=== PATIENT | female | born 1970 | race Caucasian/White ===

== ENCOUNTER 2021-09-05 08:30 | Outpatient (CLI) | payer BC, SELFPAY ==
--- NOTE | 2021-09-05 11:00 | NEURO_ITS ---
Impression: # Complains of pain in upper thigh bilaterally. # Normal motor and sensory nerve conduction study including F-waves. # Needle/EMG exam not requested. # Clinical correlation recommended; Possibility of myopathy cannot be ruled out. Nerve Conduction Studies Anti Sensory Summary Table Stim Site NR Peak (ms) P-T Amp (?V) Site1 Site2 Delta-P (ms) Dist (cm) Arnie (m/s) Left Sup Fibular Anti Sensory (Ant Lat Mall) 14 cm 3.6 6.5 14 cm Ant Lat Mall 3.6 16.0 44 Right Sup Fibular Anti Sensory (Ant Lat Mall) 14 cm 3.4 10.7 14 cm Ant Lat Mall 3.4 16.0 47 Left Sural Anti Sensory Run #2 (Lat Mall) Calf 3.6 12.6 Calf Lat Mall 3.6 16.0 44 Right Sural Anti Sensory (Lat Mall) Calf 3.8 7.0 Calf Lat Mall 3.8 16.0 42 Motor Summary Table Stim Site NR Onset (ms) O-P Amp (mV) Site1 Site2 Delta-0 (ms) Dist (cm) Arnie (m/s) Left Peroneal Motor (Vastus Med) Ankle 4.4 1.1 Popit Ankle 8.1 39.0 48 Popit 12.5 0.9 Right Peroneal Motor (Vastus Med) Ankle 4.5 3.1 Popit Ankle 7.6 38.0 50 Popit 12.1 3.0 Left Tibial Motor (Abd Orta Brev) Ankle 4.6 3.1 Knee Ankle 8.4 42.0 50 Knee 13.0 2.3 Right Tibial Motor (Abd Orta Brev) Ankle 4.5 5.4 Knee Ankle 8.7 41.0 47 Knee 13.2 3.1 F Wave Studies NR F-Lat (ms) L-R F-Lat (ms) Left Peroneal (Mrkrs) (EDB) 53.62 0.52 Right Peroneal (Mrkrs) (EDB) 53.10 0.52 Left Tibial (Mrkrs) (Abd Hallucis) 53.24 1.44 Right Tibial (Mrkrs) (Abd Hallucis) 54.69 1.44 MTDD
== END 2021-09-05 08:31 | disposition home or self-care (01) ==
LOC: ANHNEURO 08:31
PROVIDERS: PCP Internal Medicine; Visit Provider Physician Assistant Medical
DX: M79.2 Neuralgia and neuritis, unspecified (principal)
CPT/HCPCS: 95910

== ENCOUNTER 2022-08-14 13:42 | Outpatient (CLI) | payer BC, SELFPAY ==
--- NOTE | 2022-08-14 14:45 | ECG_ITS ---
Measurements Intervals [place] Rate: 96 P: 55 CT: 171 QRS: 29 QRSD: 85 T: 45 QT: 315 QTc: 398 Interpretive Statements SINUS RHYTHM POSSIBLE LEFT ATRIAL ENLARGEMENT INCOMPLETE RIGHT BUNDLE BRANCH BLOCK BASELINE ARTIFACT- I, II, III, AVR, AVL, AVF BORDERLINE ECG NO PREVIOUS ECG AVAILABLE FOR COMPARISON Electronically Signed On 08-14-2022 15:32:44 RANCH HAND SUPERVISOR by Mathew Ruelas D.O.
[2022-08-14 15:25] LABS: Basophils Absolute Auto 0.1 K/mm3 (0.0-0.1); Basophils Percent Auto 1.7 % (0.2-1.2); Eosinophils Absolute Auto 0.1 K/mm3 (0-0.3); Eosinophils Percent Auto 1.3 % (0-4.4); Hematocrit 42.2 % (37.0-47.0); Hemoglobin 13.8 g/dL (12.0-15.0); Immature Granulocyte Absolute 0.03 K/mm3 (0.00-0.031); Immature Granulocyte Percent A 0.6 % (0-0.5); Lymphocytes Absolute Auto 1.25 K/mm3 (0.9-3.2); Lymphocytes Percent Auto 23.1 % (18.3-44.2); Mean Corpuscular HGB Conc 32.7 g/dl (32-36); Mean Corpuscular Hemoglobin 32.1 pg (26-34); Mean Corpuscular Volume 98.1 fl (80-100); Mean Platelet Volume 10.2 fl (7.4-10.4); Monocytes Absolute Auto 0.8 K/mm3 (0.1-0.6); Monocytes Percent Auto 15.4 % (2.6-8.5); Neutrophils Absolute Auto 3.1 K/mm3 (1.3-6.7); Neutrophils Percent Auto 57.9 % (45.5-73.1); Platelet Count Result 227 k/mm3 (150-375); Red Cell Distribution Width 14.5 % (11.5-14.5); White Blood Count 5.4 K/mm3 (4.5-10.0)
[2022-08-14 15:30] LABS: Urine Cotinine NEGATIVE
[2022-08-14 15:33] LABS: Albumin Level 4.6 g/dL (3.5-5.1); Anion Gap 10 mmol/L (8-16); Blood Urea Nitrogen 19 mg/dL (7-17); Calcium 9.2 mg/dL (8.4-10.2); Carbon Dioxide 32 mmol/L (22-30); Chloride 98 mmol/L (98-107); Estimated Glomerular Filt Rate > 60; Glucose 90 mg/dL (65-110); Sodium 140 mmol/L (137-145)
[2022-08-14 15:41] LABS: Hemoglobin A1C 5.6 % (<5.7)
== END 2022-08-14 13:43 | disposition home or self-care (01) ==
PROVIDERS: PCP Physician Assistant Medical; Visit Provider Orthopaedic Surgery
DX: M16.11 Unilateral primary osteoarthritis, right hip (principal); Z01.818 Encounter for other preprocedural examination; I45.10 Unspecified right bundle-branch block
CPT/HCPCS: 80048; 80307; 82040; 83036; 85025; 87081; 93005

== ENCOUNTER 2022-08-28 01:01 | Day surgery (SDC) | payer BC, SELFPAY ==
[2022-08-14 13:53] VITALS: BMI 26.6
--- NOTE | 2022-08-14 14:15 | PC.NURSE ---
Report to the Outpatient Waiting Room, entrance under the green pavilion located off [facility], at time ___0600____ on date _08/28/22 . Planned Procedure Time: __729 . Time changes happen often and if your time is changed the preop area will call you the afternoon before. - You and your visitor will be asked to self-screen and do not enter if you have any COVID symptoms. - We encourage only one visitor and NO visitors under age 16 are allowed at this time. Your visitor will receive communication by the phone number that is given day of service. - The patient visitor is requested to social distance or may leave the building when not with patient due to restrictions. - A mask is required within the hospital. Patients may have clear liquids (water, carbonated beverages, clear teas, apple juice) until 3 hours prior to surgery with a maximum of 20 ounces. - No food from midnight until time of surgery - Infants may have breast milk until 4 hours before surgery, formula 6 hours prior to surgery. - Children will be allowed to drink immediately following surgery. If applicable, please bring a bottle or sippy cup to assist with drinking. Juice, water, soda, and popsicles are readily available. For infants on formula, please bring formula the day of surgery. Pacifiers are allowed. Take the following medications with a SIP of water the morning of surgery: ___NONE Medications to discontinue per physician __DICLOFENAC 7 DAYS PRE OP AND ALL VITAMINS AND SUPPLEMENTS PT STATES 7 DAYS PRE OP PER DR ARMAS Date to take last dose 08/20/22 Please no make-up, nail german, hairspray, perfume, deodorant, or body powder the day of surgery. No jewelry (including any body piercings) or valuables the day of surgery, leave them at home. Please take a shower or bath the night before, or the morning of, surgery with an antibacterial soap. Wear comfortable, loose fitting clothing. Children are encouraged to wear pajamas. - Jewelry must be removed prior to entering the operating room. Rings and piercings that are not removed may be cut off. - The hospital will not accept responsibility for valuables. - Please leave all valuables, including medications, at home the day of surgery. If you are going home after surgery, a licensed street flusher driver must drive you home. - NO public transportation without another adult. - We recommend that an adult stay with you for 24 hours following discharge. - We also recommend that you do not drive, make important decision, drink alcoholic beverages, or take any drugs that were not prescribed by your health care provider for at least 24 hours after your discharge time. For Pediatric surgeries, we recommend two adults accompany the child home. Follow any additional instructions given to you from your surgeon. If you or anyone in your household have experienced Covid symptoms in the past week, please notify your surgeon or the nurse liaison at the phone number below for possible testing. VERBAL AND WRITTEN instructions given to __PATIENT and asked if any additional questions and then verbalized understanding. Patient advised to call surgeon office or pre surgery nurse liaison [phone] if any additional questions.
[2022-08-14 14:33] VITALS: BP 152/84; PULSE 92; RESP 18; TEMP 37.2; O2SAT 96
--- NOTE | 2022-08-25 07:29 | PM.IMHP ---
H&P: HPI History of Present Illness Date/Time: 08/25/22 07:29 Chief Complaint: Right hip DJD Narrative: 52-year-old female who presents today for a right anterior total arthroplasty. She has been having progressively worsening pain in the right hip over the course last year to year and half. She has been on diclofenac 75 mg b.i.d.. Patient states she is having symptoms on a daily basis that are limiting her activities. She had her left hip replaced in 2018 is very happy with her results. She does have moderately severe osteoarthritis of the right hip and feels this point she is ready to proceed with total hip arthroplasty rather continue in a nonsurgical treatment. Review of Systems Review of Systems: All systems reviewed & are unremarkable except as noted in HPI and below PMFSH Past Medical History Medical History Abnormal mammogram Anxiety Bilateral hip pain Body mass index [BMI] 25.0-25.9, adult Body mass index [BMI] 27.0-27.9, adult (07/08/19) Cyst of left ovary Elevated liver function tests Encounter for gynecological examination (general) (routine) without abnormal findings Hx of ovarian cyst Pain in left hip Postmenopausal Primary osteoarthritis of both hips Trochanteric bursitis of both hips Trochanteric bursitis, left hip Urinary tract infection symptoms Surgical History Surgical History H/O hand surgery S/P endometrial ablation S/P hip replacement Family History Family History Father Diabetes mellitus Mother Cerebrovascular accident, Onset Age: 67 Social History Social History Smoking packs per day: 1 Smoking cigarettes per day: 20.0 Years smoked: 13 Smoking pack-years: 13.00 Smoking status: Former smoker Tobacco type: cigarettes Smoking end date: 10/08/98 Additional smoking assessment comments: DENIES ANY FORM OF TOBACCO USE Alcohol intake: current Drinks per week: 10 Substance use: current Substance use type: marijuana Other substance usage details: USES EVERY HS X 2 YEARS Last use: 08/13/22 Living arrangements: with family Gender identity (if verbalized by the patient): Female Sexual Orientation (if Verbalized by the Patient): Straight or Heterosexual Spiritual care concerns: No Meds Home Medications and Allergies Home Medications Medication Instructions Recorded Confirmed Type ferrous sulfate 325 mg (65 mg 325 mg PO DAILY 07/13/20 08/28/22 History iron) tablet (Feosol) doxycycline hyclate 20 mg capsule 20 mg PO Q12H 08/01/22 08/28/22 History calcium carbonate 600 mg-vitamin 1 tablet PO BID 08/14/22 08/28/22 History D3 10 mcg (400 unit) tablet (Calcium 600 + D(3)) diclofenac sodium 75 mg 75 mg PO PRN PRN Pain 08/14/22 08/28/22 History tablet,delayed release misoprostol 200 mcg tablet 200 mcg PO PRN PRN 08/14/22 08/28/22 History Gastrointestinal Spasms Or Cramping multivitamin 1 tablet PO DAILY 08/14/22 08/28/22 History venlafaxine 75 mg capsule,extended 75 mg PO DAILY #90 caps 08/23/22 Rx release 24 hr (Effexor XR) Allergies Allergy/AdvReac Type Severity Reaction Status Date / Time amoxicillin Allergy Unknown Dizziness Verified 08/28/22 06:26 AND HIVES latex Allergy Unknown Unknown Verified 08/28/22 06:26 metronidazole Allergy Unknown Hives Verified 08/28/22 06:26 Exam Narrative: 52-year-old female she is 5 ft 4 161 lb. Right hip flexes to 90? which caused her lateral hip pain, internal rotation only to 0 which also causes her anterior lateral hip pain. External rotation to 30. Stinchfield maneuver causes her anterior lateral hip pain. She has normal abduction strength no tenderness over the greater trochanter. 2+ dorsalis pedis and posterior artery pulse. Normal sensation right lower
[2022-08-28] VITALS (18 sets, daily range): BP systolic 104–160; BP diastolic 53–99; PULSE 89–108; RESP 10–20; TEMP 34.9–37.1; O2SAT 91–100; BMI 29.0
--- NOTE | ~2022-08-28 | XR_ITS ---
EXAMINATION: XR hip RT 1V w AP pelvis DATE: 08/28/2022 11:15 INDICATION: Right total hip arthroplasty TECHNIQUE: 2 views right hip FINDINGS: There is a right total hip arthroplasty in expected position. Subcutaneous gas with soft t issue swelling are consistent with recent surgery. Left hip arthroplasty also noted. IMPRESSION: 1. Recent right total hip arthroplasty. Reviewed, dictated and finalized at location B. NDMAN/LINEMAN
--- NOTE | ~2022-08-28 | XR_ITS ---
EXAMINATION: XR surgery orthopedic DATE: 08/28/2022 10:51 INDICATION: Anterior approach right total hip arthroplasty TECHNIQUE: Single fluoroscopic AP view of the right hip was obtained. Radiologist was not present for the procedure or imaging. The amount of fluoroscopy time used during this procedure was 0.9 minutes. COMPARISON: 02/06/2018 FINDINGS: Interval placement of a right total hip arthroplasty which appears well seated in near anatomic align ment on the single provided frontal projection. The acetabular component is affixed with at least a s frantz screw. No fractures identified. Expected lucent gas at the operative bed. IMPRESSION: 1. Expected appearance during right total hip arthroplasty. Reviewed, dictated and finalized at location A. OGRAPHER'S ASSISTANT
[2022-08-28] MEDS: LACTATED RINGERS 1,000 ML 30 ML IV CONT ×2 (06:40→11:13)
[2022-08-28] MEDS: TRANEXAMIC ACID 1,000MG/ISO100 1,000 MG/100 ML BAG 200 MG IVPB (06:40)
[2022-08-28] MEDS: ACETAMINOPHEN 500 MG TABLET 1000 MG PO ×3 (06:46→20:40)
--- NOTE | 2022-08-28 07:08 | WPDANESEPPF ---
Anes - Initial Pre Proc Eval Procedure: Operation Date: 08/28/22 07:30 Proposed Procedures p Right Total Hip Anterior Approach - Jeffrey Diaz MD Date/Time: 08/28/22 07:08 Surgeon: Jeffrey Diaz MD Pre Op Diagnosis: O A Rt Hip Patient Data Age: 52 Gender: F Height: 1.65 m Weight: 71.2 kg Last Vital Signs Temp 97.4 F L 08/28/22 06:20 Pulse 95 08/28/22 06:20 Resp 16 08/28/22 06:20 BP 150/90 H 08/28/22 06:20 Pulse Ox 97 08/28/22 06:20 O2 Del Method Room Air 08/28/22 06:20 Allergies Allergy/AdvReac Type Severity Reaction Status Date / Time amoxicillin Allergy Unknown Dizziness Verified 08/28/22 06:26 AND HIVES latex Allergy Unknown Unknown Verified 08/28/22 06:26 metronidazole Allergy Unknown Hives Verified 08/28/22 06:26 Home Medications Medication Instructions Recorded Confirmed Type ferrous sulfate 325 mg (65 mg 325 mg PO DAILY 07/13/20 08/28/22 History iron) tablet (Feosol) doxycycline hyclate 20 mg capsule 20 mg PO Q12H 08/01/22 08/28/22 History calcium carbonate 600 mg-vitamin 1 tablet PO BID 08/14/22 08/28/22 History D3 10 mcg (400 unit) tablet (Calcium 600 + D(3)) diclofenac sodium 75 mg 75 mg PO PRN PRN Pain 08/14/22 08/28/22 History tablet,delayed release misoprostol 200 mcg tablet 200 mcg PO PRN PRN 08/14/22 08/28/22 History Gastrointestinal Spasms Or Cramping multivitamin 1 tablet PO DAILY 08/14/22 08/28/22 History venlafaxine 75 mg capsule,extended 75 mg PO DAILY #90 caps 08/23/22 Rx release 24 hr (Effexor XR) Laboratory Tests 08/28/22 06:34 Beta HCG, Quant Pending Patient hx anesthesia problems: none Family hx anesthesia problems: none Results Review: All pre-operative results and documents have been reviewed as part of the pre-operative evaluation. FOR[facility]LY [facility] Past Medical History Medical History Abnormal mammogram Anxiety Bilateral hip pain Body mass index [BMI] 25.0-25.9, adult Body mass index [BMI] 27.0-27.9, adult (07/08/19) Cyst of left ovary Elevated liver function tests Encounter for gynecological examination (general) (routine) without abnormal findings Hx of ovarian cyst Pain in left hip Postmenopausal Primary osteoarthritis of both hips Trochanteric bursitis of both hips Trochanteric bursitis, left hip Urinary tract infection symptoms Surgical History Surgical History H/O hand surgery S/P endometrial ablation S/P hip replacement Family History Family History Father Diabetes mellitus Mother Cerebrovascular accident, Onset Age: 67 Social History Social History Smoking packs per day: 1 Smoking cigarettes per day: 20.0 Years smoked: 13 Smoking pack-years: 13.00 Smoking status: Former smoker Tobacco type: cigarettes Smoking end date: 10/08/98 Additional smoking assessment comments: DENIES ANY FORM OF TOBACCO USE Alcohol intake: current Drinks per week: 10 Substance use: current Substance use type: marijuana Other substance usage details: USES EVERY HS X 2 YEARS Last use: 08/13/22 Living arrangements: with family Gender identity (if verbalized by the patient): Female Sexual Orientation (if Verbalized by the Patient): Straight or Heterosexual Spiritual care concerns: No Anes - Eval Final PreProcedure Day of Procedure 08/28/22 07:08 Patient weight: normal Heart: regular rate and rhythm Lungs: clear to auscultation Airway: Mallampati scale class III (may need glidescope) Neurological: alert and oriented Last oral intake: >/= 8 hours ASA classification: II Emergent: no Anesthetic plan: proceed Anesthesia type and monitoring: general ETT and standard monitoring Results Review: All pre-operative results and documents have been r
--- NOTE | 2022-08-28 07:15 | WPDHPUPDATE1 ---
History and Physical Update Update Date/Time: 08/28/22 07:15 History and Physical has been reviewed, including an updated exam of the patient. There are NO changes in the patient's condition. Risks, benefits, and alternatives have been discussed and questions answered. Patient agrees to proceed with procedure.
[2022-08-28] MEDS: ceFAZolin 2 GM/D5W 50 ML 2 GM/50 ML BAG IVPB (07:32)
[2022-08-28] MEDS: ceFAZolin SODIUM 1 GM VIAL 3 GM (08:14)
[2022-08-28 08:49] LABS: Beta HCG Quantitative < 2.39 mIU/ML
[2022-08-28] MEDS: TRANEXAMIC ACID 1,000 MG/10 ML AMPUL 1000 MG IV PUSH (10:37)
[2022-08-28] MEDS: KETOROLAC 15 MG/ML VIAL (*BKC) IV PUSH ×3 (10:40→23:16)
[2022-08-28] MEDS: ceFAZolin SODIUM 1 GM VIAL 2 GM IV PUSH (10:41)
--- NOTE | 2022-08-28 11:21 | PM.OP ---
Procedure Note - Brief Procedure Note - Brief Date of procedure: 08/28/22 <GHAZAL Rolle - Last Filed: 08/28/22 11:22> 08/28/22 <Jeffrey Diaz MD - Last Filed: 08/28/22 11:32> Pre-op diagnosis: O A Rt Hip <GHAZAL Rolle - Last Filed: 08/28/22 11:22> Right hip DJD <GHAZAL Rolle - Last Filed: 08/28/22 11:22> Procedure performed: Right anterior total hip arthroplasty <GHAZAL Rolle - Last Filed: 08/28/22 11:22> Description of procedure: 52-year-old female who underwent right anterior total hip arthroplasty 08/28. I was involved in the procedure including positioning the patient on the OR table, 1st assisting to time surgery as well as closure. I was also involved in getting patient to recovery room. Total time spent was 4 hours <GHAZAL Rolle - Last Filed: 08/28/22 11:22> Surgeon: GHAZAL Rolle <GHAZAL Rolle - Last Filed: 08/28/22 11:22>
--- NOTE | 2022-08-28 11:22 | W.PM.PROC2 ---
Procedure Note - Detailed Date of Procedure 08/28/22 Pre-op Diagnosis O A Rt Hip Post-op Diagnosis Same Procedure Performed Direct anterior approach right total hip arthroplasty Surgeon Jeffrey Diaz MD Supervisory Geographer Rex DARLING Anesthesia General Description of Procedure Patient was brought to the operating room and general anesthesia was administered. She was placed in the [facility] [place] table right hip prepped and draped in usual fashion. The were padded placed in the boots. SCDs were applied the legs in running during the procedures. She received 2 g of Ancef weight based vancomycin 1 g of tranexamic acid preoperatively. A 10 cm longitudinal incision was made starting 3 cm lateral to the ASIS. Dissection was carried down to the fascia over the tensor fascia jada which was longitudinally incised and elevated off the anterior 50% of the TFL muscle. Interval between TFL and rectus femoris was developed and crossing vessels of ascending lateral femoral circumflex vessels were ligated with suture and divided. Retractor was placed anterior to the capsule the hip abducted and internally rotated and the gluteus minimus elevated off the lateral capsule. There was a ganglion cyst within the lateral capsular tissue in continuity with the joint space. Inverted T capsulotomy was performed. Femoral neck osteotomy made according to preoperative templating and the femoral head was removed and measured 46.5 mm in diameter. Acetabulum was exposed and labrum excised. Remaining articular cartilage was curetted from the acetabulum. The leg was X externally rotated and extended and the interval between conjoined tendon and piriformis tendon identified and incised allowing the piriformis to flipped posteriorly which gave adequate mobilization. With the leg back horizontal external rotation and traction the acetabulum was exposed and prepared. The 49 Reamer almost reamed to the periphery of the acetabulum and with an excellent Press-Fit of the trial. We lightly reamed with the 50 and tried to see the 50 pinnacle shell but could not as her bone density was quite good. We fully seated the 50 Reamer and with this done the 50 shell was able to be impacted fully with excellent press fit in the single screw placed in the ilium. This was placed at 40? of abduction and version such that the anterior rim the shell was just under the anterior rim of the acetabulum. I should also mention that during initial exposure of the acetabulum we encountered a 2 cm long anterior superior acetabular fractured osteophyte attached by fibro cartilaginous tissue and this was removed. Thirty-two inner diameter liner was placed without difficulty. The leg was externally rotated extended with the table hook exposing the femur and we broached up to a size 5 which still had torsional plate the size 6 gave torsional stability. We impacted this to just above our preoperative plan and trialed with the 1 mm head. This gave acceptable stability and we could see on the x-ray that we were flush with the saddle superiorly. I countersunk additional 3 mm trialed with the +5 head this gave appropriate soft tissue stability and x-ray showed this matched our preoperative plan exactly a goal of lengthening her between 3 and 4 mm from her preoperative state. We calcar planed and the wound was again irrigated with antibiotic solution and the size 6 standard offset Actis stem was impacted and fully seated. Excellent Press-Fit was achieved. The 32 mm +5 ceramic head was impacted on the clean and dried trunnion and the hip reduced and stability reconfirmed. Fluoroscopic x-ray documented the implant position. Capsule was reapproximated with 2. Vicryl fascia closed with running 1. Vicryl 2-0 subcutaneous in the skin and glue. Drain was placed deep in the subcu. EBL was 250 cc and she received 125 back as Cell Saver. She received additional 2 g of Ancef and 1 g of tranexamic acid time wound closure. Local anesthetic cock
[2022-08-28] MEDS: fentaNYL CITRATE INJ (*CRX) 100 MCG/2 ML VIAL 25 MCG IV PUSH ×8 (11:26→11:55)
[2022-08-28] MEDS: HYDROmorphone HCL INJ (*CRX) 1 MG/ML SYR 0.5 MG IV PUSH ×5 (12:07→13:20)
--- NOTE | 2022-08-28 14:05 | PC.NURSE ---
This patient, Jacklyn Urrutia, was admitted to 2 Medical Room 240-01. Patient/family oriented to hospital policies and general routines including ID bracelet, bed and alarms, visiting hours, pain management, procedures, bathroom and other care routines, personal items, smoking policy, room service/diet, and visiting hours. Information on how to activate the Rapid Response Team has been discussed. Patient/Family are encouraged to report perceived risks to care and to ask questions if they do not understand what they are told or what they should do.
[2022-08-28] MEDS: SODIUM CHLORIDE 0.9% IV 1,000 ML 125 ML IV CONT (14:55)
[2022-08-28] MEDS: oxyCODONE HCL (*CRX) 5 MG TAB IR 10 MG PO ×3 (14:58→23:16)
[2022-08-28] MEDS: ONDANSETRON INJ 4 MG/2 ML VIAL IV PUSH (15:36)
[2022-08-28] MEDS: SENNA/DOCUSATE SODIUM TABLET 2 TAB PO (16:37)
[2022-08-28] MEDS: FAMOTIDINE 20 MG TABLET PO (20:40)
[2022-08-29] MEDS: oxyCODONE HCL (*CRX) 5 MG TAB IR 10 MG PO ×3 (02:57→10:55)
[2022-08-29] MEDS: ACETAMINOPHEN 500 MG TABLET 1000 MG PO ×2 (02:57→08:06)
[2022-08-29 03:39] VITALS: BP 119/73; PULSE 90; RESP 16; TEMP 36.6; O2SAT 98
[2022-08-29 05:41] LABS: Anion Gap 10 mmol/L (8-16); Blood Urea Nitrogen 8 mg/dL (7-17); Calcium 8.4 mg/dL (8.4-10.2); Carbon Dioxide 29 mmol/L (22-30); Chloride 97 mmol/L (98-107); Estimated CRCL calculation 96 ml/min; Estimated Glomerular Filt Rate > 60; Glucose 97 mg/dL (65-110); Potassium 3.5 mmol/L (3.4-5.0); Sodium 136 mmol/L (137-145)
[2022-08-29 06:05] LABS: Basophils Absolute Auto 0.1 K/mm3 (0.0-0.1); Basophils Percent Auto 0.6 % (0.2-1.2); Eosinophils Percent Auto 0.3 % (0-4.4); Hematocrit 34.4 % (37.0-47.0); Hemoglobin 11.6 g/dL (12.0-15.0); Immature Granulocyte Absolute 0.02 K/mm3 (0.00-0.031); Immature Granulocyte Percent A 0.3 % (0-0.5); Lymphocytes Absolute Auto 1.12 K/mm3 (0.9-3.2); Lymphocytes Percent Auto 14.3 % (18.3-44.2); Mean Corpuscular HGB Conc 33.7 g/dl (32-36); Mean Corpuscular Hemoglobin 31.8 pg (26-34); Mean Corpuscular Volume 94.2 fl (80-100); Mean Platelet Volume 10.5 fl (7.4-10.4); Monocytes Absolute Auto 1.3 K/mm3 (0.1-0.6); Neutrophils Absolute Auto 5.3 K/mm3 (1.3-6.7); Neutrophils Percent Auto 67.5 % (45.5-73.1); Platelet Count Result 159 k/mm3 (150-375); Red Blood Count 3.65 M/mm3 (4.2-5.4); Red Cell Distribution Width 14.7 % (11.5-14.5); White Blood Count 7.8 K/mm3 (4.5-10.0)
--- NOTE | 2022-08-29 06:35 | PM.PNORT ---
Subjective Subjective Date/Time Seen: 08/29/22 06:35Postop day 1 patient is alert. Afebrile vital signs are stable. Morning labs are noted. During. Patient developed multiple times in the restroom. Dressing is dry and intact. Neurovascularly she is intact. Pain overall is relatively well controlled. Will have patient work with therapy today and will plan on discharging her home this afternoon after both therapy sessions. Objective Data Vital Signs Vital Signs: Vital Signs - 24 hr 08/28/22 11:28 08/28/22 11:13 08/28/22 11:45 Temperature 37.1 C Pulse Rate 96 108 H 96 Respiratory Rate 14 15 14 Blood Pressure 146/76 H 104/53 L 143/91 H Pulse Oximetry 100 100 99 Oxygen Delivery Simple Face Mask Simple Face Mask Simple Face Mask Oxygen Flow Rate 8 8 8 08/28/22 12:00 08/28/22 12:15 08/28/22 12:30 Temperature Pulse Rate 101 H 105 H 103 H Respiratory Rate 18 14 16 Blood Pressure 152/87 H 142/92 H 144/99 H Pulse Oximetry 95 91 98 Oxygen Delivery Room Air Room Air Nasal Cannula Oxygen Flow Rate 2 08/28/22 12:45 08/28/22 13:00 08/28/22 13:15 Temperature Pulse Rate 99 95 96 Respiratory Rate 15 16 10 L Blood Pressure 141/88 H 138/83 140/87 Pulse Oximetry 98 96 95 Oxygen Delivery Nasal Cannula Nasal Cannula Nasal Cannula Oxygen Flow Rate 2 2 2 08/28/22 13:30 08/28/22 13:45 08/28/22 14:09 Temperature 35.8 C L Pulse Rate 99 98 101 H Respiratory Rate 13 12 18 Blood Pressure 138/86 130/79 160/98 H Pulse Oximetry 96 97 99 Oxygen Delivery Nasal Cannula Nasal Cannula Oxygen Flow Rate 2 2 08/28/22 14:39 08/28/22 15:39 08/28/22 16:12 Temperature 35.0 C L 34.9 C L Pulse Rate 108 H 89 Respiratory Rate 18 18 Blood Pressure 138/92 H 150/89 H Pulse Oximetry 96 93 Oxygen Delivery Room Air Oxygen Flow Rate 08/28/22 16:33 08/28/22 19:39 08/28/22 23:39 Temperature 36.4 C 36.8 C 36.8 C Pulse Rate 95 93 Respiratory Rate 20 16 Blood Pressure 138/81 118/63 Pulse Oximetry 93 95 Oxygen Delivery Oxygen Flow Rate 08/29/22 03:39 Temperature 36.6 C Pulse Rate 90 Respiratory Rate 16 Blood Pressure 119/73 Pulse Oximetry 98 Oxygen Delivery Oxygen Flow Rate Intake/Output Intake/Output: Intake & Output 08/26/22 08/27/22 08/28/22 08/29/22 23:59 23:59 23:59 23:59 Intake Total 2260 1300 Output Total 30 Balance 2260 1270 Meds/Results Medications: Active Medications Generic Name Dose Route Start Last Admin Trade Name Freq PRN Reason Stop Dose Admin Acetaminophen 1,000 mg 08/28/22 15:00 08/29/22 02:57 Acetaminophen 500 Mg Tablet PO 1,000 mg Q6H PRIYANKA Administration Apixaban 2.5 mg 08/29/22 09:00 Apixaban 2.5 Mg Tablet PO Q12HR PRIYANKA Calcium Carbonate 500 mg 08/28/22 17:00 08/28/22 16:34 Calcium/Vitamin D 500 Mg Tablet PO Not Given BID [facility] Celecoxib 200 mg 08/29/22 09:00 Celecoxib 200 Mg Capsule PO DAILY PRIYANKA Cyclobenzaprine HCl 10 mg 08/28/22 13:54 Cyclobenzaprine Hcl 10 Mg Tablet PO Q8H PRN Muscle Spasm Famotidine 20 mg 08/28/22 21:00 08/28/22 20:40 Famotidine 20 Mg Tablet PO 20 mg Q12HR PRIYANKA Administration Fentanyl Citrate 25 mcg 08/28/22 11:21 08/28/22 11:55 Fentanyl Citrate Inj (*Crx) 100 Mcg/2 Ml Vial IV PUSH 25 mcg Q2M PRN Administration Pain Ferrous Sulfate 324 mg 08/29/22 09:00 Ferrous Sulfate 324 Mg Tablet PO DAILY PRIYANKA Vancomycin HCl 1,000 mg in 250 mls @ 250 mls/hr 08/28/22 19:00 08/29/22 06:05 Vancomycin 1,000 Mg/D5w 250 Ml IVPB 08/29/22 07:59 250 mls/hr Q12H PRIYANKA Administration Cefazolin Sodium 1 gm in 50 mls @ 100 mls/hr 08/28/22 16:00 08/28/22 23:16 Ancef 1 Gm/D5w 50 Ml Pm IVPB 08/29/22 08:29 100 mls/hr Q8H PRIYANKA Administration Sodium Chloride 1,000 mls @ 125 mls/hr 08/28/22 13:54 08/29/22 03:00 Normal Saline Iv IV CONT Infused .Q8H PRIYANKA Infusion Morphine Sulfate 2 mg 08/28/22 13:54 Morphine Sulfate (*
--- NOTE | 2022-08-29 06:40 | PM.DS ---
DS: Admitting Diagnosis Discharge Date 08/29 Admitting Diagnosis right hip DJD DS: Summary Hospital Course Hospital Course: 52-year-old female underwent right anterior total arthroplasty on 08/28. Underwent the procedure without complications. Postoperatively she has been afebrile vital signs are stable. She is weight-bearing as tolerated. She is on Eliquis for DVT prophylaxis. She was up multiple times to the restroom the day of surgery as well as overnight. Her drain is out. Dressing is dry. Neurovascularly she is intact. Pain is controlled with Flexeril well as oxycodone 10 mg every 4 hours as well as scheduled Tylenol. She will also be on Celebrex 200 mg once a day for the 1st 10 days for heterotopic bone prophylaxis. Discharged 08/09. Patient has MiraLax at home and will also go home on Senokot. Patient was advised any questions or concerns she is to call the office otherwise we will see her at her appointed date. Time Spent with Patient Time attestation: Total time spent providing and/or coordinating discharge services: DS: Data Data Completed and Pending Labs on day of discharge: Labs from last 24 hours 08/29/22 08/29/22 08/28/22 04:17 04:17 06:34 WBC 7.8 RBC 3.65 L Hgb 11.6 L Hct 34.4 L MCV 94.2 MCH 31.8 MCHC 33.7 RDW 14.7 H Plt Count 159 MPV 10.5 H Immature Gran % (Auto) 0.3 Neut % (Auto) 67.5 Lymph % (Auto) 14.[address] % (Auto) 17.0 H Eos % (Auto) 0.3 Baso % (Auto) 0.6 Lymph # (Auto) 1.12 Lane # (Auto) 1.3 H Eos # (Auto) 0.0 Baso # (Auto) 0.1 Abs Immat Gran (auto) 0.02 Absolute Neuts (auto) 5.3 Absolute Nucleated RBC 0.0 Nucleated RBC % 0.0 Sodium 136 L Potassium 3.5 Chloride 97 L Carbon Dioxide 29 Anion Gap 10 BUN 8 D Creatinine 0.60 L Estim Creat Clear Calc 96 Estimated GFR > 60 Glucose 97 Calcium 8.4 Beta HCG, Quant < 2.39 Blood Type Antibody Screen 08/28/22 06:34 WBC RBC Hgb Hct MCV MCH MCHC RDW Plt Count MPV Immature Gran % (Auto) Neut % (Auto) Lymph % (Auto) Lane % (Auto) Eos % (Auto) Baso % (Auto) Lymph # (Auto) Lane # (Auto) Eos # (Auto) Baso # (Auto) Abs Immat Gran (auto) Absolute Neuts (auto) Absolute Nucleated RBC Nucleated RBC % Sodium Potassium Chloride Carbon Dioxide Anion Gap BUN Creatinine Estim Creat Clear Calc Estimated GFR Glucose Calcium Beta HCG, Quant Blood Type A Positive Antibody Screen Negative Discharge Plan Discharge Patient Disposition: Home, Self-Care Discharge Instructions: JEFFREY DIAZ M.D [facility] [address] [place] [address] POST-OPERATIVE DISCHARGE INSTRUCTIONS ANTERIOR TOTAL HIP ARTHROPLASTY 1. Move toes/feet up and down every hour while awake. 2. Be up walking every hour while awake. 3. Use cane in hand opposite of side of hip surgery or walker as comfort allows. Avoid sitting in a chair unless eating, receiving visitors or using the toilet. 4. When resting, lie on back with leg elevated above heart to minimize swelling. Significant swelling could indicate a blood clot and if this occurs, call the office (or go to the ER) to have a venous ultrasound performed. 5. Wound Care: Keep dry sponge on wound for 2 weeks. Use minimal tape. 6. Follow weight bearing status as instructed. 7. May shower with dressing off. Stand Alone Forms: General Discharge Instructions Follow-up/Referrals: Jeffrey Diaz MD [Physician] - Keep Reg. Scheduled Appt. Discharge Medications: New acetaminophen 500 mg Tablet 1,000 mg PO Q6H Qty: 90 0RF Eliquis 2.5 mg Tablet 2.5 mg PO Q12HR Qty: 70 0RF celecoxib [Celebrex] 200 mg Capsule 200 mg PO DAILY Qty: 10 0RF cyclobenzaprine 10 mg Tablet 10 mg PO Q8H Qty: 40 0RF sennosides-docusate sodium [Senokot-S]
[2022-08-29 07:39] VITALS: BP 131/78; PULSE 89; RESP 18; TEMP 36.7; O2SAT 99
[2022-08-29] MEDS: CYCLOBENZAPRINE HCL 10 MG TABLET PO (08:05)
[2022-08-29] MEDS: APIXABAN 2.5 MG TABLET PO (08:06)
[2022-08-29] MEDS: FAMOTIDINE 20 MG TABLET PO (08:07)
[2022-08-29] MEDS: SENNA/DOCUSATE SODIUM TABLET 2 TAB PO (08:07)
[2022-08-29] MEDS: FERROUS SULFATE 324 MG TABLET PO (08:07)
[2022-08-29] MEDS: CELECOXIB 200 MG CAPSULE PO (08:07)
--- NOTE | 2022-08-29 11:38 | P.PNAN_ITS ---
Anes - Prog Note Post-Op Date/Time: 08/29/22 11:38 Vital Signs: Last Vital Signs Temp 36.7 C 08/29/22 07:39 Pulse 89 08/29/22 07:39 Resp 18 08/29/22 07:39 BP 131/78 08/29/22 07:39 Pulse Ox 99 08/29/22 07:39 O2 Del Method Room Air 08/29/22 08:00 O2 Flow Rate 2 08/28/22 13:45 Pain Score (VAS): 0 I/O: Intake & Output 08/28/22 08/29/22 08/29/22 23:59 07:59 15:59 Intake Total 1610 1300 550 Output Total 630 Balance 1610 670 550 Laboratory Tests 08/29/22 04:17 08/29/22 04:17 08/29/22 08/29/22 04:17 04:17 WBC 7.8 RBC 3.65 L Hgb 11.6 L Hct 34.4 L MCV 94.2 MCH 31.8 MCHC 33.7 RDW 14.7 H Plt Count 159 MPV 10.5 H Immature Gran % (Auto) 0.3 Neut % (Auto) 67.5 Lymph % (Auto) 14.3 L [place] % (Auto) 17.0 H Eos % (Auto) 0.3 Baso % (Auto) 0.6 Lymph # (Auto) 1.12 [place] # (Auto) 1.3 H Eos # (Auto) 0.0 Baso # (Auto) 0.1 Abs Immat Gran (auto) 0.02 Absolute Neuts (auto) 5.3 Absolute Nucleated RBC 0.0 Nucleated RBC % 0.0 Sodium 136 L Potassium 3.5 Chloride 97 L Carbon Dioxide 29 Anion Gap 10 BUN 8 D Creatinine 0.60 L Estim Creat Clear Calc 96 Estimated GFR > 60 Glucose 97 Calcium 8.4 Patient Feedback: Patient satisfied with anesthetic care.
== END 2022-08-29 12:01 | disposition home or self-care (01) ==
LOC: ANHSURGERY 06:08 → ANH2MED 14:04
PROVIDERS: Anesthesiology; Physician Assistant Surgical; PCP Physician Assistant Medical; Visit Provider Orthopaedic Surgery
PROC: (CPT 27130; principal; 2022-08-28 07:30)
DX: M16.11 Unilateral primary osteoarthritis, right hip (principal); F41.9 Anxiety disorder, unspecified; Z87.891 Personal history of nicotine dependence
CPT/HCPCS: 27130; 36415; 73501; 80048; 80307; 82040; 83036; 84702; 85025; 86850; 86900; 86901; 87081; 93005; 97110; 97116; 97161; 97165; 97530; 99199; A9270; C1776; J0171; J0690; J1100; J1170; J1885; J2250; J2270; J2370; J2405; J2704; J2795; J3010; J3370; J7030; J7120

== ENCOUNTER 2023-05-10 02:26 | Day surgery (SDC) | payer BC, SELFPAY ==
[2023-05-03 10:58] VITALS: BMI 26.3
[2023-05-10] MEDS: LACTATED RINGERS 1,000 ML 150 ML IV CONT (07:41)
[2023-05-10] MEDS: VANCOMYCIN 1,000 MG/NS 250 ML BAG 250 MG IVPB (07:46)
[2023-05-10 07:50] VITALS: BP 123/76; PULSE 66; RESP 16; TEMP 36.1; O2SAT 98; BMI 25.0
--- NOTE | 2023-05-10 07:53 | PM.HPGS ---
History of Present Illness History of Present Illness Consent: Risks, benefits, and alternatives have been discussed and questions answered. Patient agrees to proceed with procedure. Chief complaint: neoplasm screening Narrative: Jacklyn Urrutia is a 53 year old female Presents for screening colonoscopy. Patient's current weight appetite and bowel movements are normal. Patient denies abdominal pain. She has had no bleeding. Family history noncontributory. Patient did have a diminutive polyp removed at the time of endoscopy 8 years ago. Review of Systems Review of Systems: review of systems is noncontributory. [facility] Past Medical History Medical History (Updated 05/10/23 @ 07:55 by David German MD) Abnormal mammogram Anxiety HTN (hypertension) Long-term memory loss Postmenopausal Trochanteric bursitis of both hips Surgical History Surgical History ) H/O hand surgery S/P endometrial ablation S/P hip replacement Family History Family History ) Father Diabetes mellitus Mother Cerebrovascular accident, Onset Age: 67 Social History Social History ) Smoking packs per day: 1 Smoking cigarettes per day: 20.0 Years smoked: 13 Smoking pack-years: 13.00 Smoking status: Former smoker Tobacco type: cigarettes Smoking end date: 10/08/98 Additional smoking assessment comments: DENIES ANY FORM OF TOBACCO USE Alcohol intake: current Drinks per week: 10 Alcohol use details: DRINKS Substance use: never Substance use type: marijuana Other substance usage details: VAPE- EVERY OTHER DAY RECREATIONAL Last use: 08/26/22 Lack of Transportation: No Lack of Food: Never True Current Housing: I Have Housing Concerned About Future Housing: No Difficulty Paying Gas/Electric Bills: No Difficulty Paying for Meds: No Currently Unemployed: No Education: Associate Degree Difficulty w/ Childcare or Family Care: No Living arrangements: with family Occupation/Education: occupation Gender identity (if verbalized by the patient): Female Sexual Orientation (if Verbalized by the Patient): Straight or Heterosexual Spiritual care concerns: No Meds Home Medications and Allergies Home Medications Medication Instructions Recorded Confirmed Type ferrous sulfate 325 mg (65 mg 325 mg PO DAILY 07/13/20 05/03/23 History iron) tablet (Feosol) calcium carbonate 600 mg-vitamin 1 tablet PO BID 08/14/22 05/10/23 History D3 10 mcg (400 unit) tablet (Calcium 600 + D(3)) multivitamin 1 tablet PO DAILY 08/14/22 05/10/23 History alprazolam 0.5 mg tablet 0.5 mg PO TID PRN anxiety #90 tabs 02/19/23 05/10/23 Rx venlafaxine 75 mg capsule,extended 75 mg PO DAILY #90 caps 03/19/23 05/10/23 Rx release 24 hr (Effexor XR) carvedilol 6.25 mg tablet (Coreg) 6.25 mg PO Q12H #60 tabs 04/18/23 05/10/23 Rx Allergies Allergy/AdvReac Type Severity Reaction Status Date / Time amoxicillin Allergy Intermediate Dizziness Verified 05/10/23 07:47 AND HIVES latex Allergy Unknown Other Verified 05/10/23 07:47 metronidazole Allergy Unknown Hives Verified 05/10/23 07:47 erythromycin base AdvReac Severe Vomiting Verified 05/10/23 07:47 amlodipine AdvReac Intermediate swelling Verified 05/10/23 07:47 lisinopril AdvReac Mild cough Uncoded 05/10/23 07:47 losartan AdvReac Mild Cough Uncoded 05/10/23 07:47 Vital Signs Vital Signs - 24 hr 05/10/23 07:50 Temperature 97 F L Pulse Rate 66 Respiratory Rate 16 Blood Pressure 123/76 Pulse Oximetry 98 Oxygen Delivery Room Air Exam Narrative: Physical exam reveals patient to be alert. Vital signs stable. HEENT exam is unremarkable. Patient is anicteric. Lungs are clear to auscultation and percussion. Heart is without murmur or extra sounds. Abdomen bowel brittani
--- NOTE | 2023-05-10 08:22 | WPDANESEPPF ---
Anes - Initial Pre Proc Eval Procedure: Operation Date: 05/10/23 08:30 Proposed Procedures p Screening Colonoscopy - David German MD Date/Time: 05/10/23 08:22 Surgeon: David German MD Pre Op Diagnosis: neoplasm screening Patient Data Age: 53 Gender: F Height: 1.65 m Weight: 68.4 kg Last Vital Signs Temp 97 F L 05/10/23 07:50 Pulse 66 05/10/23 07:50 Resp 16 05/10/23 07:50 BP 123/76 05/10/23 07:50 Pulse Ox 98 05/10/23 07:50 O2 Del Method Room Air 05/10/23 07:50 Allergies Allergy/AdvReac Type Severity Reaction Status Date / Time amoxicillin Allergy Intermediate Dizziness Verified 05/10/23 07:47 AND HIVES latex Allergy Unknown Other Verified 05/10/23 07:47 metronidazole Allergy Unknown Hives Verified 05/10/23 07:47 erythromycin base AdvReac Severe Vomiting Verified 05/10/23 07:47 amlodipine AdvReac Intermediate swelling Verified 05/10/23 07:47 lisinopril AdvReac Mild cough Uncoded 05/10/23 07:47 losartan AdvReac Mild Cough Uncoded 05/10/23 07:47 Home Medications Medication Instructions Recorded Confirmed Type ferrous sulfate 325 mg (65 mg 325 mg PO DAILY 07/13/20 05/03/23 History iron) tablet (Feosol) calcium carbonate 600 mg-vitamin 1 tablet PO BID 08/14/22 05/10/23 History D3 10 mcg (400 unit) tablet (Calcium 600 + D(3)) multivitamin 1 tablet PO DAILY 08/14/22 05/10/23 History alprazolam 0.5 mg tablet 0.5 mg PO TID PRN anxiety #90 tabs 02/19/23 05/10/23 Rx venlafaxine 75 mg capsule,extended 75 mg PO DAILY #90 caps 03/19/23 05/10/23 Rx release 24 hr (Effexor XR) carvedilol 6.25 mg tablet (Coreg) 6.25 mg PO Q12H #60 tabs 04/18/23 05/10/23 Rx Patient hx anesthesia problems: none Family hx anesthesia problems: none Results Review: All pre-operative results and documents have been reviewed as part of the pre-operative evaluation. PMFSH Past Medical History Medical History (Updated 05/10/23 @ 07:55 by David German MD) Abnormal mammogram Anxiety HTN (hypertension) Long-term memory loss Postmenopausal Trochanteric bursitis of both hips Surgical History Surgical History ) H/O hand surgery S/P endometrial ablation S/P hip replacement Family History Family History ) Father Diabetes mellitus Mother Cerebrovascular accident, Onset Age: 67 Social History Social History ) Smoking packs per day: 1 Smoking cigarettes per day: 20.0 Years smoked: 13 Smoking pack-years: 13.00 Smoking status: Former smoker Tobacco type: cigarettes Smoking end date: 10/08/98 Additional smoking assessment comments: DENIES ANY FORM OF TOBACCO USE Alcohol intake: current Drinks per week: 10 Alcohol use details: DRINKS Substance use: never Substance use type: marijuana Other substance usage details: VAPE- EVERY OTHER DAY RECREATIONAL Last use: 08/26/22 Lack of Transportation: No Lack of Food: Never True Current Housing: I Have Housing Concerned About Future Housing: No Difficulty Paying Gas/Electric Bills: No Difficulty Paying for Meds: No Currently Unemployed: No Education: Associate Degree Difficulty w/ Childcare or Family Care: No Living arrangements: with family Occupation/Education: occupation Gender identity (if verbalized by the patient): Female Sexual Orientation (if Verbalized by the Patient): Straight or Heterosexual Spiritual care concerns: No Anes - Eval Final PreProcedure Day of Procedure 05/10/23 08:22 Patient weight: normal Heart: regular rate and rhythm Lungs: clear to auscultation Airway: Mallampati scale class II Neurological: alert and oriented Last oral intake: >/= 8 hours ASA classification: II Emergent: no Anesthetic plan: proceed Anesthesia type and monitoring: general GIVS and standard monitoring Res
[2023-05-10] MEDS: SIMETHICONE ORAL SUSPENSION 20 MG/0.3 ML 30 ML BOTTLE 0.6 ML IRRIGATION (08:43)
[2023-05-10 08:52] VITALS: BP 83/48; PULSE 75; RESP 18; O2SAT 99
[2023-05-10 09:02] VITALS: BP 95/54; PULSE 76; RESP 19; O2SAT 99
[2023-05-10 09:12] VITALS: BP 96/55; PULSE 72; RESP 18; O2SAT 99
== END 2023-05-10 09:28 | disposition home or self-care (01) ==
PROVIDERS: PCP Physician Assistant Medical; Visit Provider Internal Medicine Gastroenterology
PROC: 0DJD8ZZ Inspection of Lower Intestinal Tract, Via Natural or Artificial Opening Endoscopic (ICD-10-PCS; CPT 45378; principal; 2023-05-10 08:30)
DX: Z12.11 Encounter for screening for malignant neoplasm of colon (principal); K64.8 Other hemorrhoids; I10 Essential (primary) hypertension; F41.9 Anxiety disorder, unspecified; F12.90 Cannabis use, unspecified, uncomplicated; Z87.891 Personal history of nicotine dependence
CPT/HCPCS: 45378; J2001; J2704; J3370; J7120